=== PATIENT | female | born 1960 | race Caucasian/White ===

== ENCOUNTER → 2020-06-18 | Outpatient (CLI) | payer OTHER | LOC: EXRD 12:36 | DX: E03.9 Hypothyroidism, unspecified (principal) | CPT/HCPCS: 76536 ==

== ENCOUNTER → 2020-10-03 | Outpatient (CLI) | payer OTHER | LOC: EXRD 09:16 | DX: K76.0 Fatty (change of) liver, not elsewhere classified (principal) | CPT/HCPCS: 76700 ==

== ENCOUNTER → 2021-11-19 | Outpatient (CLI) | payer OTHER | LOC: CT 12:04 | DX: R10.2 Pelvic and perineal pain (principal) | CPT/HCPCS: Q9967 ==